=== PATIENT | female | born 1955 | race African-American/Black ===

== ENCOUNTER 2017-12-07 14:44 | Day surgery (SDC) | payer BC ==
[2017-12-07] MEDS ORDERED: FENTAnyl 50 MCG/ML VIAL (17:02)
[2017-12-07] MEDS ORDERED: MIDAZOLAM 1 MG/ML 2 ML INJ ×2 (17:02)
== END 2017-12-07 18:20 | disposition home or self-care (01) ==
LOC: GIL 14:44
DX: K29.70 Gastritis, unspecified, without bleeding (principal); K21.9 Gastro-esophageal reflux disease without esophagitis; K63.89 Other specified diseases of intestine; K64.8 Other hemorrhoids
CPT/HCPCS: 43239; 87081